=== PATIENT | male | born 1965 | race Caucasian/White ===

== ENCOUNTER 2020-08-02 08:04 | Outpatient (REF) | payer OTHER, SELFPAY ==
[2020-08-02 13:48] LABS: Vitamin B12 504 pg/mL (200-900)
== END 2020-08-02 08:05 | disposition home or self-care (01) ==
LOC: HO.MANLDS 08:04
PROVIDERS: PCP Physician Assistant; Visit Provider Physician Assistant
DX: E53.8 Deficiency of other specified B group vitamins (principal)
CPT/HCPCS: 82607

== ENCOUNTER 2021-04-27 09:20 | Outpatient (REF) | payer OTHER, SELFPAY ==
[2021-04-27 11:08] LABS: MANUAL DIFF FLAG NO
[2021-04-27 11:23] LABS: Basophils Percent Auto 0.7 % (0-2); Eosinophils Absolute Auto 0.1 X10*3/uL (0.0-0.4); Eosinophils Percent Auto 2.8 % (0-4); Hematocrit 43.3 % (42-52); Hemoglobin 15.1 g/dl (14.0-18.0); Imm Gran Abs Auto 0.01 X10*3/uL (0.00-0.03); Imm Gran Pct Auto 0.2 % (0.0-0.4); Lymphocytes Absolute Auto 1.2 X10*3/uL (1.2-4.9); Lymphocytes Percent Auto 28.4 % (20-40); Mean Corpuscular HGB Conc 34.9 g/dl (31.0-36.0); Mean Corpuscular Hemoglobin 34.5 pg (27.0-33.0); Mean Corpuscular Volume 98.9 fL (80-98); Mean Platelet Volume 9.5 fL (9.4-12.4); Monocytes Absolute Auto 0.3 X10*3/uL (0.1-1.2); Monocytes Percent Auto 8.1 % (2-11); Neutrophils Absolute Auto 2.5 X10*3/uL (2.0-8.3); Neutrophils Percent Auto 59.8 % (45-73); Platelet Count 195 X10*3/uL (160-400); Red Blood Count 4.38 X10*6/uL (4.60-5.80); Red Cell Distribution Width 12.1 % (11.0-16.0); White Blood Count 4.2 X10*3/uL (4.8-10.8)
[2021-04-27 11:33] LABS: Alanine Aminotransferase 15 U/L (0-40); Albumin Level 3.8 g/dL (3.5-5.0); Alkaline Phosphatase 83 U/L (39-117); Anion Gap 11 (12-20); Aspartate Amino Transferase 17 U/L (5-37); Bilirubin Total 1.5 mg/dL (0.0-1.0); Blood Urea Nitrogen 11 mg/dL (9-16); Calcium 9.2 mg/dL (8.4-10.2); Carbon Dioxide 25 mmol/L (22-29); Chloride 106 mmol/L (96-108); Cholesterol 229 mg/dL; Estimated Glomerular Filt Rate > 60; Glucose Fasting 91 mg/dL (60-99); HDL Cholesterol 56 mg/dL; LDL Cholesterol Calculated 155 mg/dl; Potassium 4.2 mmol/L (3.3-5.1); Sodium 138 mmol/L (135-145); Total Protein 6.8 g/dL (6.5-8.0); Triglycerides 91 mg/dL
== END 2021-04-27 09:21 | disposition home or self-care (01) ==
LOC: HO.MANLDS 09:20
PROVIDERS: PCP Internal Medicine; Visit Provider Physician Assistant
DX: Z00.00 Encounter for general adult medical examination without abnormal findings (principal)
CPT/HCPCS: 36415; 80053; 80061; 85025

== ENCOUNTER 2022-10-03 11:10 | Outpatient (REF) | payer OTHER, SELFPAY ==
[2022-10-03 13:58] LABS: MANUAL DIFF FLAG NO
[2022-10-03 14:11] LABS: Basophils Percent Auto 0.8 % (0-2); Eosinophils Absolute Auto 0.1 X10*3/uL (0.0-0.4); Hematocrit 41.9 % (42.0-52.0); Hemoglobin 14.5 g/dl (14.0-18.0); Imm Gran Abs Auto 0.01 X10*3/uL (0.00-0.03); Imm Gran Pct Auto 0.3 % (0.0-0.4); Lymphocytes Absolute Auto 1.3 X10*3/uL (1.2-4.9); Mean Corpuscular HGB Conc 34.6 g/dl (31.0-36.0); Mean Corpuscular Hemoglobin 34.9 pg (27.0-33.0); Mean Corpuscular Volume 100.7 fL (80.0-98.0); Mean Platelet Volume 9.5 fL (9.4-12.4); Monocytes Absolute Auto 0.3 X10*3/uL (0.1-1.2); Monocytes Percent Auto 9.2 % (2-11); Neutrophils Percent Auto 52.7 % (45-73); Platelet Count 171 X10*3/uL (160-400); Red Blood Count 4.16 X10*6/uL (4.60-5.80); Red Cell Distribution Width 12.5 % (11.0-16.0); White Blood Count 3.7 X10*3/uL (4.8-10.8)
[2022-10-03 14:37] LABS: Alanine Aminotransferase 26 U/L (0-40); Albumin Level 3.7 g/dL (3.5-5.0); Alkaline Phosphatase 79 U/L (39-117); Anion Gap 9 (12-20); Aspartate Amino Transferase 22 U/L (5-37); Bilirubin Total 1.2 mg/dL (0.0-1.0); Blood Urea Nitrogen 15 mg/dL (9-16); Calcium 8.8 mg/dL (8.4-10.2); Carbon Dioxide 27 mmol/L (22-29); Chloride 106 mmol/L (96-108); Cholesterol 219 mg/dL; Estimated Glomerular Filt Rate > 60; Glucose Random 86 mg/dL (60-115); HDL Cholesterol 55 mg/dL; LDL Cholesterol Calculated 147 mg/dl; Potassium 4.2 mmol/L (3.3-5.1); Prostate Specific Antigen 0.42 ng/mL (<0.05-4.0); Sodium 138 mmol/L (135-145); Total Protein 6.5 g/dL (6.5-8.0); Triglycerides 86 mg/dL
== END 2022-10-03 11:11 | disposition home or self-care (01) ==
LOC: HO.MANLDS 11:10
PROVIDERS: Visit Provider Physician Assistant
DX: Z00.00 Encounter for general adult medical examination without abnormal findings (principal); Z12.5 Encounter for screening for malignant neoplasm of prostate
CPT/HCPCS: 36415; 80053; 80061; 84153; 85025

== ENCOUNTER 2024-01-25 07:38 | Outpatient (REF) | payer OTHER, SELFPAY ==
[2024-01-25 13:34] LABS: MANUAL DIFF FLAG NO
[2024-01-25 13:47] LABS: Basophils Percent Auto 0.5 % (0-2); Eosinophils Absolute Auto 0.1 X10*3/uL (0.0-0.4); Eosinophils Percent Auto 3.1 % (0-4); Hematocrit 43.8 % (42.0-52.0); Hemoglobin 15.3 g/dl (14.0-18.0); Imm Gran Abs Auto 0.01 X10*3/uL (0.00-0.03); Imm Gran Pct Auto 0.2 % (0.0-0.4); Lymphocytes Absolute Auto 1.1 X10*3/uL (1.2-4.9); Lymphocytes Percent Auto 26.5 % (20-40); Mean Corpuscular HGB Conc 34.9 g/dl (31.0-36.0); Mean Corpuscular Hemoglobin 35.1 pg (27.0-33.0); Mean Corpuscular Volume 100.5 fL (80.0-98.0); Mean Platelet Volume 9.2 fL (9.4-12.4); Monocytes Absolute Auto 0.4 X10*3/uL (0.1-1.2); Monocytes Percent Auto 9.2 % (2-11); Neutrophils Absolute Auto 2.5 x10*3/uL (2.0-8.3); Neutrophils Percent Auto 60.5 % (45-73); Platelet Count 186 X10*3/uL (160-400); Red Blood Count 4.36 X10*6/uL (4.60-5.80); Red Cell Distribution Width 13.1 % (11.0-16.0); White Blood Count 4.2 X10*3/uL (4.8-10.8)
[2024-01-25 16:23] LABS: Alanine Aminotransferase 17 U/L (0-40); Albumin Level 3.8 g/dL (3.5-5.0); Alkaline Phosphatase 76 U/L (39-117); Anion Gap 11 (12-20); Aspartate Amino Transferase 19 U/L (5-37); Bilirubin Total 1.9 mg/dL (0.0-1.0); Blood Urea Nitrogen 9 mg/dL (9-16); Calcium 9.1 mg/dL (8.4-10.2); Carbon Dioxide 27 mmol/L (22-29); Chloride 107 mmol/L (96-108); Cholesterol 210 mg/dL (<200); Estimated Glomerular Filt Rate > 60; Glucose Random 80 mg/dL (60-115); HDL Cholesterol 44 mg/dL (>40); LDL Cholesterol Calculated 130 mg/dL (<100); Potassium 4.7 mmol/L (3.3-5.1); Sodium 140 mmol/L (135-145); Triglycerides 181 mg/dL (<150)
[2024-01-25 17:03] LABS: Prostate Specific Antigen 0.53 ng/mL (<0.05-4.0)
== END 2024-01-25 07:39 | disposition home or self-care (01) ==
LOC: HO.MANLDS 07:38
PROVIDERS: Visit Provider Physician Assistant
DX: Z00.00 Encounter for general adult medical examination without abnormal findings (principal); Z12.5 Encounter for screening for malignant neoplasm of prostate; Z13.6 Encounter for screening for cardiovascular disorders
CPT/HCPCS: 36415; 80053; 80061; 84153; 85025

== ENCOUNTER 2024-12-09 07:30 | Outpatient (REF) | payer OTHER, SELFPAY ==
--- OUTSIDE RECORDS SUMMARY | 2024-12-09 07:33 | XMS_ITS | Continuity of Care Document ---
Author Organization [facility], [facility] Address [address] [place] [address] [place] [address] Assessment No assessment recorded. Plan of Treatment Reminders Order Date Submit Date Provider Last Modified By Organization Details Last Modified Time Details Appointments ANNUAL EXAM 2025 03:30P YE MÁRQUEZ Not available Not available Not available Lab TSH + free T4, serum 2024 025 [facility], [address] [place] [address], [id number], 11/28/2024 16:00:35 CMP, serum or plasma 2024 025 [facility], [address] [place] [address], [id number], 11/28/2024 16:00:35 CBC w/ auto diff 2024 025 [facility], [address] [place] [address], [id number], 11/28/2024 16:00:35 PSA, serum or plasma 2024 025 [facility], [address] [place] [address], [id number], 11/28/2024 16:00:35 lipid panel, blood 2024 025 [facility], [address] [place] [address], [id number], 11/28/2024 16:00:35 hemoglobi n A1c, QN, blood 2024 025 [facility], [address] [place] [address], [place], [id number], 11/28/2024 16:00:35 Referral None recorded. Procedures None recorded. Surgeries None recorded. Imaging None recorded. Medication Orders None recorded. Patient TargetsNo targets recorded. Patient InstructionsNo instructions recorded. Reason for Referral None Reported. Problems Name Problem SNOMED Code Status Onset Date Resolution Date Notes Provider Name and Address Organization Details Recorded Time Mixed hyperlipid emia 312537629 Active 2017 Not Available [facility] 2 12:44:22 Acute low back pain 498920198 Active 2017 Not Available [facility] 2 12:44:22 Osteonecro sis of head of femur 273789158 Active 2018 Not Available [facility] 2 12:44:22 Low back pain 618772390 Active 2021 YE CASTILLO [address] [place] [address], [phone], [facility] 2 10:38:58 Rosacea, papular type 52676697 Active 2021 YE CASTILLO [address] [place] [address], [phone], [facility] 2 10:40:42 Atypical chest pain 386591619 Active 2023 YE CASTILLO [address] [place] [address], [phone], [facility] 4 15:44:34 Gastroesop hageal reflux disease 426096052 Active 2023 YE CASTILLO [address] [place] [address], [phone], [facility] 4 15:45:11 Dyspnea 014144328 Active 2023 YE CASTILLO [address] [place] [address], [phone], [facility] 4 15:45:23 COVID-19 474911240 Active 2023 YE CASTILLO [address] [place], [address], [facility] 4 15:27:52 Cobalamin deficiency 424590684 Active 2017 Not Available [facility] 2 12:44:22 Problem Notes None recorded. Procedures Surgical History Date Name Laterality Status Provider Name and Address Organization Details Recorded Time 04/28/20 19 Joint Replacement completed YE CASTILLO [address] [place], [address], [facility] 04/26/2020 09:08:48 Imaging Results None recorded. Procedure Notes None recorded. Medical Equipment None Reported. Allergies No known drug allergies Medications Name Sig Start Date Stop Date Status Note LastModified by Organization Details LastModified Time na 05/27 completed Not Available Not Available Not Available cyclobenzap rine 10 mg tablet Take 1 tablet 3 times a day by oral route for 5 days. 04/27 completed Not Available Not Available Not Available methocarbam ol 500 mg tablet 06/28 completed Not Available Not Available Not Available prednisone 10 mg tablet 5 tabs x 3 days 4 tabs x 3 days 3 tabs x 3 days 2 tabs x 3 days1 tabs x 3 days 04/27 completed Not Available Not Available Not Available gabapentin 600 mg tablet 04/14 completed Not Available Not Available Not Available azithromyci n 250 mg tablet TAKE 2 TABLETS (500 MG) BY ORAL ROUTE ONCE DAILY FOR 1 DAY THEN 1 TABLET (250 MG) BY ORAL ROUTE ONCE DAILY FOR 4 DAYS 10/03 completed Not Available Not Available Not Available ibuprofen 800 mg tablet TAKE 1 TABLET BY MOUTH EVERY 6 HOURS WITH FOOD 11/21 completed Not Available Not Available Not Available ofloxacin 0.3 % eye drops APPLY 1 DROP INTO LEFT EYE FOUR TIMES DAILY FOR 5 DAYS 10/03 completed Not Available Not Available Not Available hydrocodone 5 mg-acetamin ophen 325 mg tablet Take 1 tablet every 6 hours by oral route for 7 days. 04/26 completed Not Available Not Available Not Available meloxicam 15 mg tablet 04/14 completed Not Available Not Available Not Available ondansetron HCl 4 mg tablet 04/26 completed Not Available Not Available Not Available prednisone 20 mg tablet 3 tabs for 2 days2 tabs for 2 days1 tab for 2 days 11/21 completed Not Available Not Available Not Available sulfamethox azole 800 mg-trimetho prim 160 mg tablet TAKE 1 TABLET BY MOUTH TWICE DAILY FOR 7 DAYS 11/21 completed Not Available Not Available Not Available omeprazole 40 mg capsule,del ayed release TAKE 1 CAPSULE BY MOUTH DAILY 0.5 TO 1 HOUR BEFORE BREAKFAST active Not Available Not Available No t Available tramadol 50 mg tablet Take 1 tablet 4 times a day by oral route for 5 days. 04/27 completed Not Available Not Available Not Available triamcinolo ne acetonide 0.1 % topical cream APPLY TO THE AFFECTED AREA TWICE DAILY FOR 2 WEEKS THEN APPLY NEEDED AFTER THAT. 11/21 completed Not Available Not Available Not Available oxycodone-a cetaminophe n 5 mg-325 mg tablet TAKE 1 TABLET BY MOUTH EVERY 6 HOURS NEEDED 11/21 completed Not Available Not Available Not Available terbinafine HCl 250 mg tablet TAKE 1 TABLET BY MOUTH EVERY DAY 11/21 completed Not Available Not Available Not Available prednisolon e acetate 1 % eye drops,suspe nsion 05/27 completed Not Available Not Available Not Available methocarbam ol 750 mg tablet Take 1 tablet 3 times a day by oral route for 15 days. 06/28 completed Not Available Not Available Not Available clindamycin 1 % topical gel APPLY TOPICALLY TO ACNE ON CHEST AND BACK ONE A DAY NEEDED 10/03 completed Not Available Not Available Not Available IBU 600 mg tablet 02/25 completed Not Available Not Available Not Available Valium 5 mg tablet Take 1 tablet twice a day by oral route for 7 days. 02/25 completed Not Available Not Available Not Available benzonatate 100 mg capsule 10/03 completed Not Available Not Available Not Available cyanocobala min (vit B-12) 1,000 mcg/mL injection solution 05/27 completed Not Available Not Available Not Available prednisone 50 mg tablet 06/28 completed Not Available Not Available Not Available lidocaine 5 % topical patch 02/25 completed Not Available Not Available Not Available betamethaso ne dipropionat e 0.05 % topical cream APPLY TOPICALLY TO THE AFFECTED AREA TWICE DAILY FOR 2 WEEKS. LESS 11/21 completed Not Available Not Available Not Available gabapentin 300 mg capsule 02/25 completed Not Available Not Available Not Available diclofenac sodium 75 mg tablet,randolph yed release Take 1 tablet twice a day by oral route for 30 days. 04/26 completed Not Available Not Available Not Available montelukast 10 mg tablet 05/27 completed Not Available Not Available Not Available codeine 10 mg-guaifene sin 100 mg/5 mL oral liquid TAKE 5ML BY MOUTH THREE TIMES DAILY NEEDED FOR COUGH 10/03 completed Not Available Not Available Not Available mupirocin 2 % topical ointment 05/27 completed Not Available Not Available Not Available oxycodone-a cetaminophe n 7.5 mg-325 mg tablet TAKE 1 TABLET BY MOUTH EVERY 6 HOURS NEEDED FOR PAIN 05/09 completed Not Available Not Available Not Available levofloxaci n 750 mg tablet 05/27 completed Not Available Not Available Not Available methylpredn isolone 4 mg tablets in a dose pack 24 mg PO on day 1, then decr. by 4 mg/day x5 days per dose pack instructi ons 10/03 completed Not Available Not Available Not Available albuterol sulfate HFA 90 mcg/actuati on aerosol inhaler INHALE 2 PUFFS BY MOUTH INTO THE LUNGS EVERY 6 HOURS NEEDED FOR WHEEZING 10/03 completed Not Available Not Available Not Available hydroxyzine HCl 10 mg tablet TAKE 1 TO 2 TABLETS BY MOUTH DAILY EVERY 12 HOURS NEEDED FOR ITCHING 05/09 completed Not Available Not Available Not Available fluticasone propionate 50 mcg/actuati on nasal spray,suspe nsion SHAKE LIQUID AND USE 1 SPRAY IN EACH NOSTRIL EVERY DAY 10/03 completed Not Available Not Available Not Available metronidazo le 0.75 % topical gel APPLY TO FACE EVERY MORNING 11/21 completed Not Available Not Available Not Available amoxicillin 875 mg-potassiu m clavulanate 125 mg tablet TAKE 1 TABLET BY MOUTH TWICE DAILY WITH FOOD 10/03 completed Not Available Not Available Not Available nabumetone 500 mg tablet 1 tablet q 6 hours prn 06/28 completed Not Available Not Available Not Available amoxicillin 500 mg-mariely lopez clavulanate 125 mg tablet TAKE 1 TABLET BY MOUTH THREE TIMES A DAY UNTIL FINISHED 10/03 completed Not Available Not Available Not Available tobramycin 0.3 %-dexametha sone 0.1 % eye drops,suspe nsion SHAKE LIQUID AND INSTILL 1 DROP IN LEFT EYE TWICE DAILY 10/03 completed Not Available Not Available Not Available oxycodone 5 mg tablet 04/26 completed Not Available Not Available Not Available azelaic acid 15 % topical gel APPLY TO FACE EVERY NIGHT AT BEDTIME 11/21 completed Not Available Not Available Not Available chlorhexidi ne gluconate 0.12 % mouthwash 11/21 completed Not Available Not Available Not Available PreviDent 5000 Booster Plus 1.1 % dental paste BRUSH 2 TIMES A DAY FOR 2 MINUTES DIRECTED. DO NOT EAT OR DRINK FOR 30 MINUTES AFTER active Not Available Not Available No t Available Eucrisa 2 % topical ointment 05/09 completed Not Available Not Available Not Available Sodium Fluoride 5000 Plus 1.1 % dental cream USE DIRECTED 11/21 completed Not Available Not Available Not Available Paxlovid 300 mg (150 mg x 2)-100 mg tablets in a dose pack TK 2 NIRMATREL VIR TS AND 1 RITONAVIR T TOGETHER PO TWICE DAILY FOR 5 DAYS. 11/28 completed Not Available Not Available Not Available Vitals Date Recorded Body height Body mass index (BMI) Body weight Heart rate Oxygen saturation Oxygen saturation in Arterial blood by Pulse oximetry Systolic blood pressure Diastolic blood pressure Provider Name and Address Organization Details Last Updated DateTime 5 175.26 cm 30.6 kg/m2 63384.0 6 g 75 /min 95 % 95 % 112 mm[Hg] 72 mm[Hg] Eva Kamara MA [facility] 5 15:36:20 Social History Question Answer Notes LastModified by Organizat ion Details LastModified Time Tobacco Smoking Status Never Smoker EFREN Rodriguez [facility] 04/03/2018 09:02:20 What Was The Date Of Your Most Recent Tobacco Screening? 11/28/2024 [email or web address] Information not available 11/28/2024 Do You Or Have You Ever Used Any Other Forms Of Tobacco Or Nicotine? No [email or web address] Information not available 11/21/2023 Sex: Unknown Functional Status None recorded. Mental Status None recorded. Family History Nothing Reported. Medical History Condition Response Coronary Artery Disease N Other N Gout N Blood Diseases N Kidney Stones N Breast Cancer N Blood Transfusion N Lung Disease N Depression N COPD N Defects or Inherited Disease N Anxiety Disorder N Muscle, Joint, or Bone Problems Y Obesity N Vision or Eye Problems N Arthritis N Infertility N Polyps N Mental Disorder N Cancer N Stroke N Varicosities N Endometriosis N Bladder or Kidney Problems N High Cholesterol N Liver Disease N Fibromyalgia N Headaches N Kidney Disease N Allergies/Hayfever N Heart Problems N Hospitalizations N Thyroid Problems N GI Problems N Eating Disorder N Skin Problems N Anemia N MRSA exposure N Constipation N Mental Illness N Diabetes N Ovarian Cancer N Seizures/Epilepsy N Tuberculosis N Congestive Heart Failure (CHF) N Eczema N Abuse/Domestic Violence N Diverticulitis N Asthma N Reflux/GERD N Hepatitis N Heart Disease N Pulmonary Embolism N Hypertension N Chicken Pox N Autism Spectrum Disorder (ASD) N Osteoporosis N Immunizations Vaccine Type Date Status Note Provider Nam e and Address Organization Details Recorded Time COVID-19, mRNA, LNP-S, PF, 100 mcg/0.5mL dose or 50 mcg/0.25mL dose 1 completed Doretha Gencarelle [facility] 10/03/2022 09:59:12 COVID-19, mRNA, LNP-S, PF, 100 mcg/0.5mL dose or 50 mcg/0.25mL dose 1 completed Doretha Gencarelle [facility] 10/03/2022 09:59:12 zoster, unspecified formulation 2 completed Doretha Gencarelle [facility] 10/03/2022 09:59:12 Influenza, split virus, quadrivalent, preservative 8 completed Dorehta Gencarelle [facility] 10/03/2022 09:59:12 [facility] 04/26/2020 08:55:10 Influenza, split virus, quadrivalent, preservative 9 completed Doretha lisagerianjana nasreen [facility] 10/03/2022 09:59:12 Past Encounters Encounter ID Performer Location Encounter Start Date Encounter Closed Date Diagnosis/Indication Diagnosis SNOMED-CT Code Diagnosis ICD10 Code Diagnosis Note [id number] YE CASTILLO [facility] [address] [facility] [address] 11/28/2024 15:27:17 11/28/2024 16:13:26 Active or passive immunization 476169144 Z23 patient advised he is due for tdap and yearly influenza vaccine Adult heal th examination 890359158 Z00.00 stable BP Family his tory of Thyroid disorder 185298718 Z83.49 will set up with screening Health Concerns Section Related Observation LastModified by Organization Detai ls LastModified Time None Recorded Concern Status LastModified by Organization Details LastModified Time None Recorded Payers Encounter Date Sequence Insurance Name Policy Number Policy Pham Covered Member ID Pham Member ID Guarantor Name 11/28/2024 1 [facility] [id number] [facility] [id number] [facility] Notes Date Note Type Note Provider Name a nd Address Organization Details Recorded Time 5 text/html Annual WellnessReported bypatient.Diet and Nutrition:healthy diet; discussed vitamin and supplement use; discussed portion control; discussed maintaining calcium balance; discussed diet improvement Fracture Risk:no history of fractures; no recent explained fracture; no sudden unexplained fractures; no previous musculoskeletal injuries Physical Activity:exercises on a regular basis; recent increase in physical activity; good physical condition Additional Lifestyle Factors:no tobacco use; no alcohol intake; stopped drinking alcohol Depression Risk:never feels sad, empty, or tearful; no loss of interest in activities; no significant changes in weight; no sleep disturbances or insomnia; no agitation; no loss of energy; no feelings of worthlessness or guilt; no thoughts of suicide; no history of depression; no history of mood disorders Hearing:no loss of hearing Vision:no vision problems YE CASTILLO [address] [place], [address], [facility] 11/28/2024 16:08:05
--- OUTSIDE RECORDS SUMMARY | 2024-12-09 07:33 | XMS_ITS | Clinical Summary ---
Author Organization [facility] Address [address] [place] [address] Care Team Providers Care Brass Cutter Name Role Phone Pcp, No Primary Care Provider Unavailabl e Allergies No known active allergies Social History Tobacco Use Types Packs/Day Years Used Date Smoking Tobacco: Never Assessed Sex and Gender Information Value Date Recorded Sex Assigned at Not on file Gender Identity Not on file Sexual Orientation Not on file Last Filed Vital Signs Vital Sign Reading Time Taken Comments Blood Pressure - - Pulse 65 06/21/2021 10:24 AM EDT Temperature 36.6 ??C (97.8 ??F) 06/21/2021 10:24 AM E DT Respiratory Rate - - Oxygen Saturation 98% 06/21/2021 10:24 AM EDT Inhaled Oxygen Concentration - - Weight - - Height - - Body Mass Index - - Plan of Treatment Health Maintenance Due Date Last Done Comments Hepatitis C Virus Screening 1966 HIV Screening 1979 DTaP/Tdap/Td Vaccines (1 - Tdap) 1985 Hepatitis B Vaccines (1 of 3 - 19+ 3-dose series) 1985 Colonoscopy 2011 Pneumococcal Vaccines 50+ (1 of 1 - PCV) 2016 Zoster (Shingles) Vaccine (1 of 2) 2016 Influenza Vaccine 05/08/2024 07/13/2020 COVID-19 Vaccine (2023-2 5 season) 2024 09/08/2021, 01/31/2021, 12/27/2020 Pneumococcal Vaccine: Pediatric (0-5 Years) and At-Risk Patients (6 to 49 Years) Aged Out No longer eligible b ased on patient's age to complete this topic Care Teams Brass Cutter Relationship Specialty Start Date End Date Pcp, No PCP - General General Medicine 05/26/21
--- OUTSIDE RECORDS SUMMARY | 2024-12-09 07:33 | XMS_ITS | Clinical Summary ---
Author Organization [facility] Address [address] [place] [address] Care Team Providers Care Candy Butcher Name Role Phone Ander Rojas DO Primary Care Provider [phone] Social History Tobacco Use Types Packs/Day Years Used Date Smoking Tobacco: Never Assessed Sex and Gender Information Value Date Recorded Sex Assigned at Male 04/28/2020 10:17 AM EDT Gender Identity Not on file Sexual Orientation Not on file Plan of Treatment Health Maintenance Due Date Last Done Comments Hepatitis B Vaccines (1 of 3 - 3-dose series) 1966 Hepatitis C Screening 1966 COVID-19 Vaccine (#1) 1966 Depression Screening 1978 Preventative Health Evaluation 1984 DTap / Tdap / Td (1 - Tdap) 1985 Colon Cancer Screening (Colonoscopy) 2011 Shingrix-Zoster Vaccine (1 of 2) 2016 Influenza Vaccine (#1) 2024 Pneumococcal Vaccine Aged Out No long er eligible based on patient's age to complete this topic RSV Ped < 20 months Aged Out No longe r eligible based on patient's age to complete this topic Care Teams Candy Butcher Relationship Specialty Start Date End Date Ander Rojas DO [address] [place] [address] PCP - General Internal Medicine 04/28/20
--- OUTSIDE RECORDS SUMMARY | 2024-12-09 07:33 | XMS_ITS | Data Portability ---
Author Organization [facility] Home Service Address [address] [place] [address] Assessment Encounter Date Assessment Date Assessment LastModified by Organization Details LastModified Time 10/12/2021 10/12/2021 Patient agreed and verbally consents to this audio and video Telehealth appt via a secure platform [email or web address] Not available 10/12/2021 15:01:34 05/09/2024 05/09/2024 Patient agreed and verbally consents to this audio and video Telehealth appt via a secure platform [email or web address] Not available 05/09/2024 15:44:46 Plan of Treatment Reminders Order Date Submit Date Provider Last Modified By Organization Details Last Modified Time Details Appointments ANNUAL EXAM 2025 03:30P M YE CASTILLO Not available Not available Not available Lab TSH + free T4, serum 2024 025 [facility], [address] [place] [address], [id number], 11/28/2024 16:00:35 CMP, serum or plasma 2024 025 [facility], [address] [place] [address], [id number], 11/28/2024 16:00:35 CBC w/ auto diff 2024 025 [facility], [address] [place] [address], [id number], 11/28/2024 16:00:35 PSA, serum or plasma 2024 025 [facility], [address] [place] [address], [id number], 11/28/2024 16:00:35 lipid panel, blood 2024 025 [facility], [address] [place] [address], [id number], 11/28/2024 16:00:35 hemoglobi n A1c, QN, blood 2024 025 [facility], [address] [place] [address], [id number], 11/28/2024 16:00:35 CMP, serum or plasma 2023 024 [facility], [address] [place] [address], [id number], 01/28/2024 11:36:51 CBC w/ auto diff 2023 024 [facility], [address] [place] [address], [id number], 11/21/2023 16:19:50 lipid panel, blood 2023 024 [facility], [address] [place] [address], [id number], 11/21/2023 16:19:50 PSA, serum or plasma 2023 024 [facility], [address] [place] [address], [id number], 11/28/2023 08:23:13 CMP, serum or plasma 2021 022 [facility], [address] [place] [address], [id number], 10/10/2022 10:44:11 lipid panel, blood 2021 022 [facility], [address] [place] [address], [place], [address], 10/03/2022 10:50:28 CBC w/ auto diff 2021 [facility], [address] [place] [address], [id number], 10/10/2022 09:54:37 PSA, serum or plasma 2021 [facility], [address] [place] [address], [place], [id number], 10/10/2022 10:44:12 Referral gastroent erologist referral 2023 prelav43 [facility], [address] [place] [address], [id number], 05/12/2024 11:20:45 Procedures None recorded. Surgeries None recorded. Imaging None recorded. Medication Orders prednison e 20 mg tablet 2021 [id number], [address] [place], [place], [id number], 11/21/2023 16:13:41 metronida zole 0.75 % topical gel 2021 [facility] #[id number], [address], [place], [id number], 11/21/2023 16:13:55 Patient TargetsNo targets recorded. Patient InstructionsNo instructions recorded. Reason for Referral [employer] Referral for Gastroesophageal reflux disease GERD, ?gastritis, gastric ulcer Referring Physician: Ariana Khan, Internal Medicine, Encounter Date: 05/09/2024 Results Created Date Observation Date Name Description Value Unit Range Abnormal Flag Note LastModifiedBy Organization Detail LastModifiedTime Result Notes None recorded. Problems Name Problem SNOMED Code Status Onset Date Resolution Date Notes Provider Name and Address Organization Details Recorded Time Mixed hyperlipid emia 319094179 Active 2017 Not Available [facility] 2 12:44:22 Acute low back pain 301009206 Active 2017 Not Available [facility] 2 12:44:22 Osteonecro sis of head of femur 284228114 Active 2018 Not Available [facility] 2 12:44:22 Low back pain 905275652 Active 2021 EY CASTILLO [address] [place], [address], [facility] 2 10:38:58 Rosacea, papular type 32688253 Active 2021 YE CASTILLO [address] [place], [address], [facility] 2 10:40:42 Atypical chest pain 529666466 Active 2023 YE CASTILLO [address] [place], [address], [facility] 4 15:44:34 Gastroesop hageal reflux disease 463002506 Active 2023 YE CASTILLO [address] [place], [address], [facility] 4 15:45:11 Dyspnea 986829594 Active 2023 YE CASTILLO [address] [place], [address], [facility] 4 15:45:23 COVID-19 871592560 Active 2023 YE CASTILLO [address] [place], [address], [facility] 4 15:27:52 Cobalamin deficiency 343851345 Active 2017 Not Available [facility] 2 12:44:22 Problem Notes None recorded. Procedures Surgical History Date Name Laterality Status Provider Name and Address Organization Details Recorded Time 04/28/20 19 Joint Replacement completed YE CASTILLO [address] [place], [address], [facility] 04/26/2020 09:08:48 Imaging Results None [...] Available Not Available Not Available amoxicillin 500 mg-potassiu m clavulanate 125 mg tablet TAKE [...] and Address Organization Details Last Updated DateTime 2 175.26 cm 31.5 kg/m2 91410.3 3 g 61 /min 98 % 98 % 134 mm[Hg] 82 mm[Hg] Juana King [facility] 2 10:10:18 Date Recorded Body height Body mass index (BMI) Body weight Oxygen saturation Oxygen saturation in Arterial blood by Pulse oximetry Heart rate Systolic blood pressure Diastolic blood pressure Provider Name and Address Organization Details Last Updated DateTime 4 175.26 cm 31.5 kg/m2 03677.1 7 g 95 % 95 % 79 /min 98 mm[Hg] 58 mm[Hg] Heather Duenas [facility] 4 15:59:32 Date Recorded Body height Body mass index (BMI) Body weight Heart rate Oxygen saturation Oxygen saturation in Arterial blood by Pulse oximetry Systolic blood pressure Diastolic blood pressure Provider Name and Address Organization Details Last Updated DateTime 5 175.26 cm 30.6 kg/m2 27677.0 6 g 75 /min 95 % 95 % 112 mm[Hg] 72 mm[Hg] Eva Kamara [facility] 5 15:36:20 Social History Question Answer Notes LastModified by Organizat ion Details LastModified Time Tobacco Smoking Status [facility] 09:02:20 What Was The Date Of Your Most Recent Tobacco Screening? 11/28/2024 [email or web address] Information not available 11/28/2024 Do You Or Have You Ever Used Any Other Forms Of Tobacco Or Nicotine? No [email or web address] Information not available 11/21/2023 Sex: Unknown Functional Status None recorded. Mental Status None recorded. Family History Nothing Reported. Medical History Condition Response Coronary Artery Disease N Gout N Other N Kidney Stones N Blood Diseases N Blood Transfusion N Breast Cancer N COPD N Depression N Lung Disease N Defects or Inherited Disease N Anxiety Disorder N Muscle, Joint, or Bone Problems Y Obesity N Vision or Eye Problems N Arthritis N Polyps N Infertility N Mental Disorder N Cancer N Varicosities N Stroke N Endometriosis N Bladder or Kidney Problems N High Cholesterol N Liver Disease N Headaches N Fibromyalgia N Kidney Disease N Allergies/Hayfever N Heart [...] 50 mcg/0.25mL dose 1 completed Doretha Gencarelle [facility] 10/03/2022 09:59:12 COVID-19, mRNA, LNP-S, PF, 100 mcg/0.5mL dose or 50 mcg/0.25mL dose 1 completed Doretha Gencarelle [facility] 10/03/2022 09:59:12 zoster, unspecified formulation 2 completed Doretha Gencarelle [facility] 10/03/2022 09:59:12 Influenza, split virus, quadrivalent, preservative 8 completed Doretha Gencarelle [facility] 10/03/2022 09:59:12 Tdap 2 completed [facility] 04/26/2020 08:55:10 Influenza, split virus, quadrivalent, preservative 9 completed Doretha Cruz nasreen [facility] 10/03/2022 09:59:12 Past Encounters Encounter ID Performer Location Encounter Start Date Encounter Closed Date Diagnosis/Indication Diagnosis SNOMED-CT Code Diagnosis ICD10 Code Diagnosis Note [id number] [facility] [address] [place] [address],[place] [address] 04/03/2018 08:54:05 04/03/2018 09:48:06 Adult health examination 259993023 Z00.00 [id number] [facility] [address],[place] [address] 05/27/2018 13:30:37 05/27/2018 14:40:54 Acute low back pain 080400224 M54.5 likely muscular recommend conservati ve treatment and consider PT if not relieved Leukopenia 69505996 D72. 819 has had in past and was found to have borderline b12. he took injections for 6 months then rechecked and it was normal. because he never heard back he assumed he could stop the b12 injections . he's been off since 12/2017. may be why he was mildly anemic Vitamin B1 2 deficiency (non anemic) 08315290 E53.8 has been off injections since 12/2017 [id number] [facility] [address] [place] [address],[place] [address] 2018 13:57:20 2018 14:42:33 Chronic back pain 867112654 G89.29 chronic intermitte nt bowel regimen Pain in ri ght hip joint 9891512169 62187 M25.551 chronic worsening Pain in right knee 76165 05053 95985 M25.561 now bothersome again no injury [facility] [address] [place] [address] [address],[place] [address] 02/25/2019 15:27:21 02/25/2019 16:13:20 Osteonecrosis of hip 409743430 M87.851 plan is to f/u with ortho 03/04/19 for going forward stop meloxicam will rx vicodin until seen by ortho Mixed hyperlipidemia 267 674055 E78.2 [id number] January DAVID Hopper [facility] [address] [facility] [address], [place] [facility] [place] [address] 04/14/2019 09:21:03 04/14/2019 10:05:52 Pre-surgery evaluation 802810822 Z01.818 cleared for surgery pending ekg reading labs reviewed awaiting ekg Adult heal th examination 526774826 Z00.00 Active or passive immunization 533284535 Z23 Body mass index 30+ - obesity 771513077 Z68.31 Macrocytosis 561527207 D 75.89 recommend taking b12 year round as he tends to run low end of normal Osteonecrosis of hip 444 865248 M87.851 THR scheduled for 04/28 with amarilys sandoval [id number] YE CASTILLO [facility] [address] [facility], [place] [address] 04/26/2020 08:52:13 04/26/2020 09:27:24 Adult health examination 125953385 Z00.00 just would like to see a specialist for hearing exam Hearing loss 10352744 H9 1.93 tinnitus and hearing loss bilateral [id number] YE CASTILLO [facility] [address] [facility], [place] [address] 07/12/2020 10:36:36 07/12/2020 16:34:41 Lumbago with sciatica 559266693 M54.41 will try and treat first with pred taper if doesn't work with try tramadol and cyclo, which worked before [id number] YE CASTILLO [facility] [address] [facility] [address] [address] 04/27/2021 08:57:30 04/27/2021 09:54:49 Active or passive immunization 828218861 Z23 advised Adult heal th examination 956628523 Z00.00 just would like to see a specialist for hearing exam Posterior rhinorrhea 758 82397 R09.82 will start on flonase [id number] YE CASTILLO [facility] [address] [facility] [address] [address] 10/12/2021 09:24:25 10/12/2021 15:55:18 Exposure to SARS-CoV-2 887176609 Z20.[address] [facility] [id number] YE CASTILLO [facility] [address] [facility] [address], [place] [address] 10/03/2022 09:58:30 10/03/2022 10:53:45 Active or passive immunization 282349631 Z23 patient advised he is due for tdap Adult heal th examination 762293391 Z00.00 just would like to see a specialist for hearing exam Low back pain 580867236 M54.59 will start taper for patient Rosacea, papular type 75 712952 L71.8 will trial metro [id number] YE CASTILLO [facility] [address] [facility] [address] 11/21/2023 15:47:52 11/21/2023 16:34:55 Adult health examination 985567314 Z00.00 stable BP [id number] YE CASTILLO [facility] [address] [facility], [place] [address] 05/09/2024 09:15:41 05/12/2024 11:20:45 Atypical chest pain 676653111 R07.89 resolved Gastroesop hageal reflux disease 876268871 K21.00 agreed to GI referral for endoscope Dyspnea 410161442 R06.02 resolved Depression screening 171 438341 Z13.31 neg Active or passive immunization 065123807 Z23 patient advised he is due for tdap and yearly influenza vaccine [id number] YE CASTILLO [facility] [address] [facility] [address],[place] [address] 11/28/2024 15:27:17 11/28/2024 16:13:26 Active or passive immunization 501335669 Z23 patient advised he is due for tdap and yearly influenza vaccine Adult heal th examination 008246298 Z00.00 stable BP Family his tory of Thyroid disorder 524115510 Z83.49 will set up with screening Health Concerns Section Related Observation LastModified by Organization Detai ls LastModified Time None Recorded Concern Status LastModified by Organization Details LastModified Time None Recorded Advance Directives Directive None Recorded Payers Encounter Date Sequence Insurance Name Policy Number Policy Pham Covered Member ID Pham Member ID Guarantor Name 10/12/2021 1 [employer] [id number] Huey Helems [id number] 1 Huey Helems 10/03/2022 1 [employer] [id number] Huey Helems [id number] 1 Huey Helems 11/21/2023 1 [employer] [id number] Huey Helems [id number] 1 Huey Helems 05/09/2024 1 [employer] [id number] Huey Helems [id number] 1 Huey Helems 11/28/2024 1 [employer] [id number] Huey Helems [id number] 1 Huey Helems Notes Date Note Type Note Provider Name a nd Address Organization Details Recorded Time 2 text/html c/o COVID exposure telemed phone callpatient consents to a phone call patient went to [facility], where the next few days after a few of his friends tested positive for COVIDwill need a negative test result for workwill send order to [facility] per patient request no symptoms at this timewill fax order for patient YE CASTILLO [address] [place] [address], [address], [facility] 10/12/2021 15:01:50 2 text/html Annual WellnessReported bypatient.Diet and Nutrition:discussed vitamin and supplement use; discussed portion control; discussed maintaining calcium balance; discussed diet improvement Fracture Risk:no history of fractures; no recent explained fracture; no sudden unexplained fractures; no previous musculoskeletal injuries Physical Activity:exercises on a regular basis; recent increase in physical activity; good physical condition Additional Lifestyle Factors:no tobacco use; drinks alcohol (mild-moderate) Depression Risk:never feels sad, empty, or tearful; no loss of interest in activities; no significant changes in weight; no sleep disturbances or insomnia; no agitation; no loss of energy; no feelings of worthlessness or guilt; no thoughts of suicide; no history of depression; no history of mood disorders Hearing:no loss of hearing Vision:no vision problems YE CASTILLO [address] [place], [address], [facility] 10/03/2022 10:49:54 4 text/html Annual WellnessReported bypatient.Diet and Nutrition:healthy diet; discussed vitamin and supplement use; discussed portion control; discussed maintaining calcium balance; discussed diet improvement Fracture Risk:no history of fractures; no recent explained fracture; no sudden unexplained fractures; no previous musculoskeletal injuries Physical Activity:exercises on a regular basis; recent increase in physical activity; good physical condition Additional Lifestyle Factors:no tobacco use; stopped drinking alcohol Depression Risk:never feels sad, empty, or tearful; no loss of interest in activities; no significant changes in weight; no sleep disturbances or insomnia; no agitation; no loss of energy; no feelings of worthlessness or guilt; no thoughts of suicide; no history of depression; no history of mood disorders Hearing:no loss of hearing Vision:no vision problems YE CASTILLO [address] [place], [address] 11/21/2023 16:22:27 4 text/html ER f/u The patient is participating in this appointment via telemedicine communication with a phone call/video calling service ([employer])The patient consents to use of these platforms in place of an in-person appointment due to either sick symptoms the patient is presenting with or current office closure due to COVID exposure in order to keep our office staff and patients safe the patient presented to the ER with 2 days of ongoing intermittent chest pain and sob, woke up the day of the ER visit with 5/10 retrosternal chest pain and difficulties breathing patient has no serious cardiac history or significant medical historythe patient's EKG was normal, vitals were within normal limitstroponin wnl with no elevation with secondary values no signs of infection, no recent medications, does not have cancer/currently going through chemo/radiationno hx of trauma or injury to the chest leading up to these symptoms the patient did endorse after further conversation to eating several greasy take out meals prior to the development of symptoms the day prior as his exam and bw was assuring patient was d/c home with a script of omeprazole, final diagnosis on d/c was GERD omeprazole 40 mg QD PO, first thing in the morning prior to meals recommended f/u with PCP Today: the patient states he is feeling fine todaysome tightness around his chestno burning in throatcannot exclude gastritis vs gastric ulcer vs hiatal herniaagreed to GI referral for further work up has been using his omeprazole, will see custom stock maker Sunday as wellworking on diet YE CASTILLO [address] [place] [address], [address], [facility] 05/09/2024 16:20:06 text/html Annual WellnessReported bypatient.Diet and Nutrition:healthy diet; [...] hearing Vision:no vision problems YE CASTILLO [address] [place], [address], [facility] 11/28/2024 16:08:05
--- OUTSIDE RECORDS SUMMARY | 2024-12-09 07:33 | XMS_ITS | Clinical Summary ---
Author Organization [facility] ity Address [address] [place] [address] Care Team Providers Care Clinical Research Manager Name Role Phone Ander Rojas DO Primary Care Provider [phone] Social History Tobacco Use Types Packs/Day Years Used Date Smoking Tobacco: Never Assessed Sex and Gender Information Value Date Recorded Sex Assigned at Not on file Legal Sex Male 7:26 PM EST Gender Identity Not on file Sexual Orientation Not on file Plan of Treatment Health Maintenance Due Date Last Done Comments DTaP,Tdap,and Td Vaccines (1 - Tdap) 1985 Hepatitis B Vaccines (1 of 3 - 19+ 3-dose series) 1985 Pneumococcal Vaccine: 50+ Ye ars (1 of 1 - PCV) 2016 Zoster Vaccines (1 of 2) 2016 COVID-19 Vaccine (2023-2 5 season) 2024 Influenza Vaccine (#1) 2024 HIB Vaccines Aged Out No longer eligi ble based on patient's age to complete this topic HPV Vaccines Aged Out No longer eligi ble based on patient's age to complete this topic Hepatitis A Vaccines Aged Out No long er eligible based on patient's age to complete this topic IPV Vaccines Aged Out No longer eligi ble based on patient's age to complete this topic MMR Vaccines Aged Out No longer eligi ble based on patient's age to complete this topic Meningococcal ACWY Vaccine Aged Out N o longer eligible based on patient's age to complete this topic Meningococcal B Vacine Aged Out No lo nger eligible based on patient's age to complete this topic Pneumococcal Vaccine: Pediat rics (0 to 5 Years) and At-Risk Patients (6 to 64 Years) Aged Out No longer eligible b ased on patient's age to complete this topic RSV Immunization Patients Un fazal 20 months Aged Out No longer eligible b ased on patient's age to complete this topic Varicella Vaccines Aged Out No longer eligible based on patient's age to complete this topic Care Teams Clinical Research Manager Relationship Specialty Start Date End Date Ander Rojas DO [address] [facility] [address] [place], [place] PCP - General Internal Medicine 04/28/20
[2024-12-09 13:41] LABS: MANUAL DIFF FLAG NO
[2024-12-09 13:52] LABS: Basophils Percent Auto 0.7 % (0-2); Eosinophils Absolute Auto 0.1 X10*3/uL (0.0-0.4); Eosinophils Percent Auto 2.7 % (0-4); Hematocrit 42.1 % (42.0-52.0); Hemoglobin 14.5 g/dl (14.0-18.0); Imm Gran Abs Auto 0.02 X10*3/uL (0.00-0.03); Imm Gran Pct Auto 0.5 % (0.0-0.4); Lymphocytes Absolute Auto 1.5 X10*3/uL (1.2-4.9); Lymphocytes Percent Auto 33.5 % (20-40); Mean Corpuscular HGB Conc 34.4 g/dl (31.0-36.0); Mean Corpuscular Volume 98.8 fL (80.0-98.0); Mean Platelet Volume 9.3 fL (9.4-12.4); Monocytes Absolute Auto 0.4 X10*3/uL (0.1-1.2); Neutrophils Absolute Auto 2.4 x10*3/uL (2.0-8.3); Neutrophils Percent Auto 53.6 % (45-73); Platelet Count 186 X10*3/uL (160-400); Red Blood Count 4.26 X10*6/uL (4.60-5.80); Red Cell Distribution Width 13.3 % (11.0-16.0); White Blood Count 4.4 X10*3/uL (4.8-10.8)
[2024-12-09 14:41] LABS: Alanine Aminotransferase 20 U/L (0-40); Albumin Level 3.6 g/dL (3.5-5.0); Alkaline Phosphatase 83 U/L (39-117); Anion Gap 12 (12-20); Aspartate Amino Transferase 23 U/L (5-37); Bilirubin Total 1.2 mg/dL (0.0-1.0); Blood Urea Nitrogen 11 mg/dL (9-16); Calcium 8.7 mg/dL (8.4-10.2); Carbon Dioxide 25 mmol/L (22-29); Chloride 108 mmol/L (96-108); Cholesterol 193 mg/dL (<200); Estimated Glomerular Filt Rate > 60; Glucose Random 94 mg/dL (60-115); HDL Cholesterol 44 mg/dL (>40); LDL Cholesterol Calculated 125 mg/dL (<100); Potassium 4.9 mmol/L (3.3-5.1); Sodium 140 mmol/L (135-145); Total Protein 7.1 g/dL (6.5-8.0); Triglycerides 123 mg/dL (<150)
[2024-12-09 14:53] LABS: Prostate Specific Antigen 0.47 ng/mL (<0.05-4.0); Thyroid Stimulating Hormone 1.25 uIU/mL (0.32-4.0)
[2024-12-09 15:13] LABS: T4 Thyroxine 7.1 ug/dL (4.5-12.0)
[2024-12-09 16:22] LABS: Estimated Average Glucose 100 mg/dL; Hemoglobin A1C 121.1102 umol/L; Hemoglobin A1c % 5.1 % (<6.0); Total Hemoglobin (HGBA1C) 3738.9867 umol/L
== END 2024-12-09 07:31 | disposition home or self-care (01) ==
LOC: HO.MANLDS 07:30
PROVIDERS: Visit Provider Physician Assistant
DX: Z83.49 Family history of other endocrine, nutritional and metabolic diseases (principal); Z13.220 Encounter for screening for lipoid disorders; Z13.1 Encounter for screening for diabetes mellitus; Z13.29 Encounter for screening for other suspected endocrine disorder; Z13.0 Encounter for screening for diseases of the blood and blood-forming organs and certain disorders involving the immune mechanism; Z12.5 Encounter for screening for malignant neoplasm of prostate
CPT/HCPCS: 36415; 80053; 80061; 83036; 84153; 84436; 84443; 85025

== ENCOUNTER 2025-08-07 15:26 | Outpatient (REF) | payer OTHER, SELFPAY ==
--- OUTSIDE RECORDS SUMMARY | 2025-08-05 09:30 | XMS_ITS | Encounter Summary ---
Author Organization [facility] Address [address] [place] [address] Phone Care Team Providers Care Event Management Consultant Name Role Phone Ander Rojas DO Primary Care Provider [phone] Reason for Visit * Reason Comments Back Pain Lifted a file cabine t and throw in truck. Mid to lower Encounter Details Date Type Department Care Team (Late st Contact Info) Description 08/05/2025 9:30 AM EDT Office Visit [facility] [address] [address] Evangelina Pineda CNP [address] [place] [address] juan [email or web address] Acute midline low back pain without sciatica (Primary Dx); Nontraumatic compression fracture of T8 vertebra, initial encounter Social History Tobacco Use Types Packs/Day Years Used Date Smoking Tobacco: Never Smokeless Tobacco: Never Tobacco Cessation:Counseling Given: Not Answered Alcohol Use Standard Drinks/Week Comments No 0 (1 standard drink = 0.6 oz pur e alcohol) Education Answer Date Recorded Are you interested in more education? Not on carli e 02/02/2023 Are you concerned about learning? Not on file 02/02/2023 No 02/02/2023 No 02/02/2023 Digital Access Answer Date Recorded No 03/03/2023 No 03/03/2023 Reliable internet access at home? Not on file 03/03/2023 Device with a working camera? Not on file Intimate Partner Violence Answer Date R ecorded Are you denied basic needs s uch as food, clothing, or medical care? No 08/07/2024 In the past 12 months have y ou been in a relationship with a person who hurts, threatens, or tries to control you? No 08/07/2024 Are you denied basic needs s uch as food, clothing, or medical care? No 08/07/2024 In the past 12 months have y ou been in a relationship with a person who hurts, threatens, or tries to control you? No 08/07/2024 Sex and Gender Information Value Date Recorded Sex Assigned at Not on file Legal Sex Male 9:40 PM EDT Gender Identity Not on file Sexual Orientation Not on file documented as of this encounter Last Filed Vital Signs Vital Sign Reading Time Taken Comments Blood Pressure 116/77 08/05/2025 9:35 AM EDT Pulse 75 08/05/2025 9:35 AM EDT Temperature 36.9 C (98.4 F) 08/05/2025 9:35 AM EDT Respiratory Rate 18 08/05/2025 9:35 AM EDT Oxygen Saturation 98% 08/05/2025 9:35 AM EDT Inhaled Oxygen Concentration - - Weight - - Height - - Body Mass Index - - documented in this encounter Patient Instructions * Patient Instructions* Evangelina Pineda CNP - 08/05/2025 9:30 AM EDT There is noted compression fracture at proximately T8 and T12 You need to rest and stay in position of comfort although do not stay in 1 position for extended period of time If you develop abdominal pain or blood in urine stool or any numbness or tingling in the extremities seek follow-up care You will need to follow-up at [facility] You can call to schedule an appointment either in [place] or [place] Phone numbers are [phone] and [place] Or [phone] in [place] We have prescribed tramadol which is a narcotic pain medication and you may also take [id number] acetaminophen Make sure you stay hydrated * Attachments The following attachments cannot be sent through Care Everywhere. * Back Pain (Guatem[place]) * Compression Fracture: Spine ([place]) documented in this encounter Progress Notes * Evangelina Pineda CNP - 08/05/2025 9:30 AM EDT Images from the original note were not included. Subjective: Patient ID: Huey Acevedo is a 60 y.o. male. 60-year-old male patient presents 30 minutes status post acute onset of back pain and hearing pop in the mid low back. Was trying to lift a file cabinet standing sideways to truck and as he tried to swing it onto the truck felt and heard pain which did drop him to his knees. After several minutes patient was able to get up on his own. There was no loss of bowel or bladder. Currently no abdominal pain or nauseousness or vomiting. Since injury patient has not had to void or move bowels. able to ambulate slowly and with great discomfort. Review of Systems Constitutional: Negative for appetite change, chills, diaphoresis, fatigue and fever. Respiratory: Negative for cough and shortness of breath. Gastrointestinal: Negative for abdominal pain, nausea and vomiting. Allergic/Immunologic: Negative for immunocompromised state. Skin: Negative for persistent rash and wound. Musculoskeletal: Positive for back pain and gait problem. Negative for joint swelling and myalgias. Vitals: 08/05/25 0935 BP: 116/77 Pulse: 75 Resp: 18 Temp: 36.9 ??C (98.4 ??F) SpO2: 98% Objective: Physical Exam Vitals and nursing note reviewed. Constitutional: General: He is not in acute distress. Appearance: Normal appearance. He is not ill-appearing, toxic-appearing or diaphoretic. Comments: Patient in obvious discomfort Returning to room from x-ray patient felt lightheaded, color drained from face- immediately sat in chair without fall syncope Ice applied to neck HENT: Head: Normocephalic and atraumatic. Cardiovascular: Rate and Rhythm: Normal rate and regular rhythm. Pulmonary: Effort: Pulmonary effort is normal. Abdominal: General: There is no distension. Palpations: Abdomen is soft. There is no mass. Tenderness: There is no abdominal tenderness. There is no guarding or rebound. Hernia: No hernia is present. Musculoskeletal: Comments: Back is nontender along spinal processes Skin: General: Skin is warm and dry. Findings: No bruising, erythema or rash. Neurological: General: No focal deficit present. Mental Status: He is alert and oriented to person, place, and time. Motor: Weakness present. Gait: Gait abnormal (antalgic, hunched). Comments: Patient unable to sit and we are unable to assess DTRs No peripheral edema, calves are soft Patient is able to stand on heels and toes and each foot independently Psychiatric: Mood and Affect: Mood normal. Behavior: Behavior normal. No results found for this visit on 08/05/25. Procedure: Procedures Assessment/Plan: Diagnosis Plan 1. Acute midline low back pain without sciatica XR Lumbar Spine XR Thoracic Spine Results and Data Reviewed: I personally reviewed the radiology results. Interventions: Check imaging. Assessment and Plan: 60-year-old male patient presents with fairly severe mid back pain beginning approximately 30 minutes [employer] when he attempted to swing a file cabinet up onto his truck Pain dropped him to his knees but he was able to stand up on his own No loss of bowel or bladder No leg numbness, tingling or weakness Patient did have presyncopal episode after x-rays obtained-did not feel safe discharging patient onher own and was called to assist patient X-rays do note renal calculi on lumbar [id number] states that is not now Provider Notes thoracic compression fractures-no official reading prior to patient discharge Provide prescription tramadol-patient denies any history of substance abuse Patient is aware to stay hydrated and advise use of [id number] stool softener- Please see AVS for further information-patient is aware to follow-up with [facility] documented in this encounter Plan of Treatment Not on file documented as of this encounter Procedures Procedure Name Priority Date/Time Associated Diagnosis Comments XR THORACIC SPINE 3 VIEW Urgent/patient waiting 08/05/2025 10:19 AM EDT Acute midline low back pain without sciatica XR LUMBOSACRAL SPINE 2-3 VIEWS Urgent/patient waiting 08/05/2025 10:01 AM EDT Acute midline low back pain without sciatica documented in this encounter Results * XR THORACIC SPINE 3 VIEW (08/05/2025 10:19 AM EDT) Anatomical Region Laterality Modality T-spine Computed Radiogr aphy 08/05/2025 11:0 7 AM EDT Impressions 08/05/2025 11:10 AM EDT Age-indeterminate compression deformities of T6 and T12 but new from 04/28/2024. Narrative 08/05/2025 11:10 AM EDT XR THORACIC SPINE 3 VIEW Referring clinician's provided indication for this examination in [facility]: Pain; abnormal T12 on lumbar xr COMPARISON: XR CHEST PA AND LATERAL 2 VIEWS 2023- FINDINGS: Similar compression deformities of the upper thoracic spine. Age-indeterminate compression deformity of T6 and T12. Multilevel degenerative changes are seen. Procedure Note Yolie Hood MD - 08/05/2025 XR THORACIC SPINE 3 VIEW Referring clinician's provided indication for this examination in Epic:Pain; abnormal T12 on lumbar xr COMPARISON: XR CHEST PA AND LATERAL 2 VIEWS FINDINGS: Similar compression deformities of the upper thoracic spine.Age-indeterminate compression deformity of T6 and T12. Multileveldegenerative changes are seen. IMPRESSION: Age-indeterminate compression deformities of T6 and T12 but new from04/28/2024. Evangelina Pineda PARTY DIRECTOR IM XR SPINE Final Resul t * XR LUMBOSACRAL SPINE 2-3 VIEWS (08/05/2025 10:01 AM EDT) Anatomical Region Laterality Modality L-spine Computed Radiogr aphy 08/05/2025 10:4 5 AM EDT Addenda Addendum by Yolie Hood MD on 08/05/2025 11:11 AM EDT ADDENDUM: Addendum: Upon second review, there is is a compression deformity of T12, age-indeterminate but new from 04/28/2024. End of addendum. Impressions 08/05/2025 10:46 AM EDT No displaced fracture. Likely 5 mm left lower pole renal stone. Narrative 08/05/2025 10:46 AM EDT XR LUMBOSACRAL SPINE 2-3 VIEWS Referring clinician's provided indication for this examination in [facility]: Pain; 30 min prior- heard pop, unable stand up straight COMPARISON: None FINDINGS: Normal alignment. Normal vertebral body heights. Intervertebral disc space narrowing and osteophytes are seen throughout the lumbar spine.. Intact sacroiliac joints. Right hip arthroplasty is partially seen. 5 mm calcified density projecting over the left renal fossa over the lower pole. Procedure Note Yolie Hood MD - 08/05/2025 XR LUMBOSACRAL SPINE 2-3 VIEWS Referring clinician's provided indication for this examination in [facility]:Pain; 30 min prior- heard pop, unable stand up straight COMPARISON: None FINDINGS: Normal alignment. Normal vertebral body heights. Intervertebral disc spacenarrowing and osteophytes are seen throughout the lumbar spine.. Intactsacroiliac joints. Right hip arthroplasty is partially seen. 5 mmcalcified density projecting over the left renal fossa over the lowerpole. IMPRESSION: No displaced fracture. Likely 5 mm left lower pole renal stone. Evangelina Pineda PARTY DIRECTOR IMG XR SPINE Edited Resu lt - Final documented in this encounter Visit Diagnoses Diagnosis Acute midline low back pain without sciatica- Primary Nontraumatic compression fracture of T8 vertebra, initial encounter documented in this encounter Care Teams Event Management Consultant Relationship Specialty Start Date End Date Ander Rojas DO PCP - General Internal Medicine 11/23/17 documented as of this encounter Additional Source Comments The information contained in this document represents components of the legal health record. It is not the complete legal health record.[facility]
--- OUTSIDE RECORDS SUMMARY | 2025-08-05 09:50 | XMS_ITS | Encounter Summary ---
Author Organization [facility] Address [address] [place] [address] Phone Care Team Providers Care 7Th Grade Teacher Name Role Phone Ander Rojas Primary Care Provider [phone] Encounter Details Date Type Department Care Team (Late st Contact Info) Description 08/05/2025 9:50 AM EDT Hospital Encounter [facility] [address] [place] [address] Evangelina Pineda CNP [address] [place] [address] juan Arrived Social History Tobacco Use Types Packs/Day Years Used Date Smoking Tobacco: Never Smokeless Tobacco: Never Alcohol Use Standard Drinks/Week Comments No 0 [...] on file documented as of this encounter Plan of Treatment Not on file documented as of this encounter Procedures Procedure Name Priority Date/Time Associated Diagnosis Comments XR LUMBOSACRAL SPINE 2-3 VIEWS Urgent/patient waiting 08/05/2025 10:01 AM EDT Acute midline low back pain without sciatica documented in this encounter Results * XR LUMBOSACRAL SPINE 2-3 VIEWS (08/05/2025 [...] clinician's provided indication for this examination in Epic: Pain; 30 min prior- heard pop, unable [...] clinician's provided indication for this examination in [facility]:Pain; 30 min prior- heard pop, unable [...] left lower pole renal stone. Evangelina Pineda POLITICAL GEOGRAPHER IMG XR SPINE Edited Resu lt - Final documented in this encounter Visit Diagnoses Not on filedocumented in this encounter Care Teams 7Th Grade Teacher Relationship Specialty Start Date End Date Ander Rojas DO PCP - General Internal Medicine 11/23/17 documented as of this encounter Additional Source Comments The information contained in this document represents components of the legal health record. It is not the complete legal health record.[facility]
--- OUTSIDE RECORDS SUMMARY | 2025-08-05 10:09 | XMS_ITS | Encounter Summary ---
Author Organization [facility] Address [address] [place] [address] Phone Care Team Providers Care Women Specialist Name Role Phone Ander Rojas Primary Care Provider [phone] Encounter Details Date Type Department Care Team (Late st Contact Info) Description 08/05/2025 10:09 AM EDT Hospital Encounter [facility] [address] [place] [address] Evangelina Pineda CNP [address] [place] [address] juan [email or web address] Arrived Social History Tobacco Use Types Packs/Day [...] clinician's provided indication for this examination in [facility]: Pain; abnormal T12 on lumbar xr COMPARISON: XR CHEST PA AND LATERAL 2 VIEWS FINDINGS: Similar compression deformities of the upper thoracic spine. Age-indeterminate compression deformity of T6 and T12. Multilevel degenerative changes are seen. Procedure Note Yolie Hood MD - 08/05/2025 XR THORACIC SPINE 3 VIEW Referring clinician's provided indication for this examination in [facility]:Pain; abnormal T12 on lumbar xr COMPARISON: XR CHEST PA AND LATERAL 2 VIEWS FINDINGS: Similar compression deformities of the upper thoracic spine.Age-indeterminate compression deformity of T6 and T12. Multileveldegenerative changes are seen. IMPRESSION: Age-indeterminate compression deformities of T6 and T12 but new from04/28/2024. Evangelina Pineda POLICE AIDE IMG XR SPINE Final Resul t documented in this encounter Visit Diagnoses Not on filedocumented in this encounter Care Teams Women Specialist Relationship Specialty Start Date End Date Ander Rojas DO [email or web address] PCP - General Internal Medicine 11/23/17 documented as of this encounter Additional Source Comments The information contained in this document represents components of the legal health record. It is not the complete legal health record.[facility]
--- OUTSIDE RECORDS SUMMARY | 2025-08-07 15:32 | XMS_ITS | Encounter Summary ---
Author Organization [facility] Address [address] [facility] [address] [place] [address] Phone Care Team Providers Care Staff Mechanical Engineer Name Role Phone Ander Rojas Primary Care Provider [phone] Reason for Referral * MRI/CAT Scan - Closed Specialty Diagnoses / Procedures Referred By Rosie marcano Referred To Contact Radiology Diagnoses Kidney stone Procedures CT Abdomen/Pelvis Marisela Hopper PA-C Phone: tel: fax: [email or web address] Referral ID Status Reason Start Date Expiration Date Visits Re quested Visits Authorized [id number] Closed 06/24/2018 06/24/2019 1 1 Encounter Details Date Type Department Care Team (Late st Contact Info) Description 06/24/2018 Ancillary Orders Virtual Department [address] [place] [address] Marisela Hopper PA-C [address] [place] [address] Kidney stone Social History Tobacco Use Types Packs/Day Years Used Date Smoking Tobacco: Never Smokeless Tobacco: Never Alcohol Use Standard Drinks/Week Comments Yes 0 (1 standard drink = 0.6 oz pur e alcohol) Sex and Gender Information Value Date Recorded Sex Assigned at Not on file Legal Sex Male 9:40 PM EDT Gender Identity Not on file Sexual Orientation Not on file documented as of this encounter Plan of Treatment Not on file documented as of this encounter Results * CT ABDOMEN/PELVIS WITHOUT CONTRAST (06/26/2018 1:19 PM EDT) Anatomical Region Laterality Modality Abdomen, Pelvis Computed Tomogra phy 06/26/2018 2:28 PM EDT Impressions 06/26/2018 2:45 PM EDT 1. No evidence of a right-sided intrarenal/ureteral or intrabowel radiodensity. 2. Incidental non-obstructing left lower pole 5 mm renal stone. 3. Otherwise unremarkable non-enhanced CT abdomen and pelvis. TOTAL CTDIvol: 8.6 mGy POS - [id number] Narrative 06/26/2018 2:45 PM EDT Automated exposure control. Unenhanced exam from adrenals through pelvic floor. Multiplanar reformations. Compare to typed report of lumbar spine films from 06/21/2018 by teleradiology specialists describing a 1.5 cm diameter calcification to the right of L1-2. FINDINGS: 5 mm non-obstructing stone lower pole left kidney. No other intrarenal, ureteral or bladder calculi on either side. Neither collecting system is dilated. No obvious renal masses or signs of pyelonephritis on this non-enhanced study. No bladder wall thickening or filling defects. No prostate enlargement. The lower liver and spleen, the gallbladder, biliary tree, pancreas and adrenals all unremarkable for non-enhanced exam. No opaque densities within the bowel lumen to the right of L1 or elsewhere. Very minimal sigmoid diverticulosis. No other bowel pathology is apparent allowing for lack of oral contrast. No adenopathy or ascites. Visualized lung bases and pleural spaces clear. No bony pathology. Procedure Note Kelvin Anderson MD - 06/26/2018 Automated exposure control. Unenhanced exam from adrenals through pelvic floor. Multiplanarreformations. Compare to typed report of lumbar spine films from 06/21/2018 byteleradiology specialists describing a 1.5 cm diameter calcification tothe right of L1-2. FINDINGS: 5 mm non-obstructing stone lower pole left kidney. No other intrarenal, ureteral or bladder calculi on either side. Neither collecting system is dilated. No obvious renal masses or signs of pyelonephritis on this non-enhancedstudy. No bladder wall thickening or filling defects. No prostate enlargement. The lower liver and spleen, the gallbladder, biliary tree, pancreas andadrenals all unremarkable for non-enhanced exam. No opaque densities within the bowel lumen to the right of L1 orelsewhere. Very minimal sigmoid diverticulosis. No other bowel pathologyis apparent allowing for lack of oral contrast. No adenopathy or ascites. Visualized lung bases and pleural spaces clear. No bony pathology. IMPRESSION: 1. No evidence of a right-sided intrarenal/ureteral or intrabowelradiodensity. 2. Incidental non-obstructing left lower pole 5 mm renal stone. 3. Otherwise unremarkable non-enhanced CT abdomen and pelvis. TOTAL CTDIvol: 8.6 mGy POS - [id number] January Ward BAKER IMG CT ABD/PELVIS Final Resu lt documented in this encounter Visit Diagnoses Diagnosis Kidney stone Calculus of kidney Kidney stone Calculus of kidney documented in this encounter Additional Health Concerns Infection Onset Date Last Indicated Resolved Time CoV-Risk 06/13/2020 06/13/2020 06/27/2020 1:24 AM EDT CoV-Exposed Comment:Recent close contact documented in the COVID-19 PCR/PRO order 10/10/2021 10/13/2021 10/25/2021 1:[address] CoV-Risk 02/21/2022 02/21/2022 03/04/2022 1:25 AM EDT CoV-Exposed Comment:Recent close contact documented in the COVID-19 PCR/PRO order 02/21/2022 02/21/2022 03/04/2022 1:25 AM E DT documented as of this encounter Care Teams Staff Mechanical Engineer Relationship Specialty Start Date End Date Ander Rojas DO PCP - General Internal Medicine 11/23/17 documented as of this encounter Additional Source Comments The information contained in this document represents components of the legal health record. It is not the complete legal health record.[facility]
--- OUTSIDE RECORDS SUMMARY | 2025-08-07 15:32 | XMS_ITS | Clinical Summary ---
Author Organization [facility] Address [address] [place] [address] Care Team Providers Care Manager Primary Name Role Phone Ander Rojas DO Primary Care Provider [phone] Social History Tobacco Use Types Packs/Day Years [...] 2016 Zoster Vaccines (1 of 2) 2016 Depression Screening 10/08/2024 COVID-19 Vaccine (1 - 2023-2 5 season) 2025 Influenza Vaccine (#1) 2025 RSV Immunization Adult Patie nts (1 - 1-dose 75+ series) 2041 HIB Vaccines Aged Out No longer eligi [...] age to complete this topic Meningococcal B Vaccine Aged Out No l onger eligible based on patient's age to complete this topic RSV Immunization Patients Un fazal 20 months Aged Out No longer eligible b ased on patient's age to complete this topic Varicella Vaccines Aged Out No longer eligible based on patient's age to complete this topic Care Teams Manager Primary Relationship Specialty Start Date End Date Ander Rojas DO [address] [facility] [place], [place] PCP - General Internal Medicine 04/28/20
--- OUTSIDE RECORDS SUMMARY | 2025-08-07 15:32 | XMS_ITS | Encounter Summary ---
Author Organization [facility] Address [address] [facility] [address] [place] [address] Phone Care Team Providers Care Medical Record Administrator Name Role Phone Ander Rojas DO Primary Care Provider [phone] Encounter Details Date Type Department Care Team (Late st Contact Info) Description 06/21/2018 Ancillary Orders Virtual Department [address] [place] [address] Marisela Hopper, SAMUEL [address] [place] [address] [email or web address] Acute low back pain, unspecified back pain laterality, with sciatica presence unspecified; Pain in joint of right hip Social History Tobacco Use Types Packs/Day Years [...] on file documented as of this encounter Visit Diagnoses Diagnosis Acute low back pain, unspecified back pain laterality, with sciatica presence unspecified Pain in joint of right hip documented in this encounter Additional Health Concerns [...] documented as of this encounter Care Teams Medical Record Administrator Relationship Specialty Start Date End Date Ander Rojas DO [email or web address] PCP - General Internal Medicine 11/23/17 documented as of this encounter Additional Source Comments The information contained in this document represents components of the legal health record. It is not the complete legal health record.[facility]
--- OUTSIDE RECORDS SUMMARY | 2025-08-07 15:32 | XMS_ITS | Encounter Summary ---
Author Organization [facility] Address [address] [facility] [address] [place] [address] Phone Care Team Providers Care Claims Manager Name Role Phone Ander Rojas DO Primary Care Provider [phone] Encounter Details Date Type Department Care Team (Late st Contact Info) Description 04/28/2019 Procedure Pass [place] Admitting Dept - Virtual Department [address] [place] [address] Social History Tobacco Use Types Packs/Day Years [...] documented as of this encounter Visit Diagnoses Not on filedocumented in this encounter Additional Health Concerns Infection [...] documented as of this encounter Care Teams Claims Manager Relationship Specialty Start Date End Date Ander Rojas [email or web address] PCP - General Internal Medicine 11/23/17 documented as of this encounter Additional Source Comments The information contained in this document represents components of the legal health record. It is not the complete legal health record.[facility]
--- OUTSIDE RECORDS SUMMARY | 2025-08-07 15:32 | XMS_ITS | Encounter Summary ---
Author Organization [facility] Address [address] [address] Phone Care Team Providers Care Spotlight Operator Name Role Phone Ander Rojas DO Primary Care Provider [phone] Reason for Referral * Physical Therapy (Routine) - Closed Specialty Diagnoses / Procedures Referred By Rosie marcano Referred To Contact Physical Therapy Diagnoses Encounter for rehabilitation Marisela Hopper PA-C Phone: tel: fax: [email or web address] [facility] [address] [place] [address] Phone: tel: Referral ID Status Reason Start Date Expiration Date Visits Re quested Visits Authorized [id number] Closed 06/24/2018 04/06/2019 30 30 Encounter Details Date Type Department Care Team (Late st Contact Info) Description 06/04/[address] [facility] [address] [place] [address] Ander Rojas DO [address] [facility] [place] [address] Encounter for rehabilitation (Primary Dx) Social History Tobacco Use Types Packs/Day Years [...] as of this encounter Plan of Treatment Scheduled Referrals Name Type Priority Associated Diagnoses Orde r Schedule Ambulatory referral to [facility] Physical Therapy Outpatient Referral Routine Encounter for rehabilitation Ordered: 06/04/2018 documented as of this encounter Visit Diagnoses Diagnosis Encounter for rehabilitation- Primary documented in this encounter Additional Health Concerns [...] documented as of this encounter Care Teams Spotlight Operator Relationship Specialty Start Date End Date Ander Rojas DO [email or web address] PCP - General Internal Medicine 11/23/17 documented as of this encounter Additional Source Comments The information contained in this document represents components of the legal health record. It is not the complete legal health record.[facility]
--- OUTSIDE RECORDS SUMMARY | 2025-08-07 15:32 | XMS_ITS | Encounter Summary ---
Author Organization [facility] Address [address] [place] [address] Phone Care Team Providers Care Voice Coach Name Role Phone Ander Rojas DO Primary Care Provider [phone] Encounter Details Date Type Department Care Team (Latest Contact Info) Description 10/13/2021 Transcribe Orders Virtual Department [address] [place] [address] Ariana Khan PA [address] [facility] [place] [address] [place] [address] Exposure to confirmed case of COVID-19 (Primary Dx) Social History Tobacco Use Types [...] as of this encounter Plan of Treatment Pending Results Name Type Priority Associated Diagnoses Date /Time COVID-19 PCR Order Lab Routine Exposure to confirmed case of COVID-19 10/13/2021 4:50 PM EST documented as of this encounter Visit Diagnoses Diagnosis Exposure to confirmed case of COVID-19- Primary documented in this encounter Additional Health Concerns Infection Onset Date Last Indicated Resolved Time CoV-Exposed Comment:Recent close contact documented in the COVID-19 PCR/PRO order 10/10/2021 10/13/2021 10/25/2021 1:[address] CoV-Risk 02/21/2022 02/21/2022 03/04/2022 1:25 AM EDT CoV-Exposed Comment:Recent close contact documented in the COVID-19 PCR/PRO order 02/21/2022 02/21/2022 03/04/2022 1:25 AM E DT documented as of this encounter Care Teams Voice Coach Relationship Specialty Start Date End Date Ander Rojas DO [email or web address] PCP - General Internal Medicine 11/23/17 documented as of this encounter Additional Source Comments The information contained in this document represents components of the legal health record. It is not the complete legal health record.[facility]
--- OUTSIDE RECORDS SUMMARY | 2025-08-07 15:32 | XMS_ITS | Encounter Summary ---
Author Organization [facility] Address [address] [facility] [address] [place] [address] Phone Care Team Providers Care Mortgage Loan Computation Clerk Name Role Phone Ander Rojas DO Primary Care Provider [phone] Encounter Details Date Type Department Care Team (Late st Contact Info) Description 06/24/2018 Procedure Pass [facility], Ct Scan - [facility] [address] [place] [address] Social History Tobacco Use Types Packs/Day Years [...] documented as of this encounter Care Teams Mortgage Loan Computation Clerk Relationship Specialty Start Date End Date Ander Rojas DO [email or web address] PCP - General Internal Medicine 11/23/17 documented as of this encounter Additional Source Comments The information contained in this document represents components of the legal health record. It is not the complete legal health record.[facility]
--- OUTSIDE RECORDS SUMMARY | 2025-08-07 15:32 | XMS_ITS | Clinical Summary ---
Author Organization [facility] Address [address] [facility] [address] [place] [address] Phone Care Team Providers Care Manager Electrical Name Role Phone Ander Rojas DO Primary Care Provider [phone] Allergies Active Allergy Reactions Criticality Noted Date Comments No Known Allergies Medications albuterol 90 mcg/actuation inhaler Inhale 2 puffs into the lungs every 6 (six) hours as needed for wheezing. 6.7 g 2 Active guaiFENesin-cod eine (ROBITUSSIN AC) 100-10 mg/5 mL liquid Take 5 mL (10 mg of codeine total) by mouth 3 (three) times a day as needed for cough. 120 mL 2 Active Additional Information Patient not taking.Reported on 08/05/2025 terbinafine HCL (LAMISIL) 250 mg tablet Take 1 tablet (250 mg total) by mouth daily. 14 tablet 3 Active hydrOXYzine HCL (ATARAX) 10 MG tablet TAKE 1 TO 2 TABLETS BY MOUTH DAILY EVERY 12 HOURS NEEDED FOR ITCHING Active omeprazole (PRILOSEC) 40 MG capsule TAKE ONE CAPSULE EVERYDAY BY MOUTH FOR 30 DAYS Active traMADoL (ULTRAM) 50 mg tablet Take 1 tablet (50 mg total) by mouth every 6 (six) hours as needed for pain (specific location in comments). 10 tablet 5 Active Active Problems Problem Noted Date Diagnosed Date Gastroesophageal reflux disease 05/09/2024 Acne rosacea, papular type 10/03/2022 History of total hip replacement, right 04/28/20 19 Avascular necrosis of femoral head 04/15/2019 Mixed hyperlipidemia 05/28/2018 Abscess of perineum 12/05/2017 Assessment & Plan (12/20/2017 10:56 AM EDT): We discussed I&D, but he opted against it as he feels it is spontaneously draining. I do not feel fluctuance as well. We will see him back on Sunday to reassess. Bactrim is been prescribed. He will try to offload pressure as much as possible and keep the area clean. We discussed eventual excision of the area as there is likely a cyst in the area of healing resulting in recurrent infections. Assessment & Plan (12/05/2017 10:41 AM EST): Reviewed procedure for I&D, consent signed. Prepped and anesthetized with 1% lidocaine with epinephrine. Incision into abscess cavity and evacuation of serosanguinous drainage, culture obtained and sent to the lab. Cavity cleansed with hydrogen peroxide and loculations broken with cotton-tipped applicator, packed with 1/2 inch packing tape and covered with DSD. To remove packing in 24 hours, wash site well with soap and water and keep covered while draining. To call with any questions or problems. Resolved Problems Problem Noted Date Diagnosed Date Resolved Date Osteonecrosis of right hip 11/12/2018 0 06/10/2019 Encounters Date Type Department Care Team Description 08/05/2025 10:09 AM EDT Hospital Encounter [facility] [address] [place] [address] Evangelina Pineda CNP Arrived 08/05/2025 9:50 AM EDT Hospital Encounter [facility] [address] [place] [address] Evangelina Pineda CNP Arrived 08/05/2025 9:30 AM EDT Office Visit [facility] at [address] [address] Evangelina Pineda CNP Acute midline low back pain without sciatica (Primary Dx); Nontraumatic compression fracture of T8 vertebra, initial encounter from Last 3 Months Immunizations Immunization Administration Dates Next Due COVID-19 (Pre-07/30) Moderna Vaccine, mRNA, PF 09/08/2021,01/31/2021,12/27/2020 Influenza Quadrivalent Preservative Free IM 07/08,07/18/2018 Influenza Quadrivalent w/ Preservative IM 2018,07/18/2018 Td (adult) 5 Lf Tetanus Toxo id, PF, Adsorbed 08/23/2012 Tdap 10/08/2011 Zoster recombinant 06/20/2022,10/25/2021 Family History Medical History Relation Comments Clotting disorder Father Relation Status Comments Father Mother Alive Social History Tobacco Use Types Packs/Day Years [...] EDT Inhaled Oxygen Concentration - - Weight 95.3 kg (210 lb) 04/28/2024 12:57 PM EDT Height 175.3 cm (5' 9 ) 04/28/2024 12:57 PM EDT Body Mass Index 31.01 04/28/2024 12:57 PM EDT Plan of Treatment Health Maintenance Due Date Last Done Comments LIPID PANEL 1966 DEPRESSION SCREENING 1978 COLOGUARD 2011 COLONOSCOPY 2011 COLORECTAL CANCER SCREENING 2011 FIT TEST 2011 FOBT 2011 SIGMOIDOSCOPY 2011 VIRTUAL COLONOSCOPY 2011 PNEUMOCOCCAL VACCINES (50+ years) (1 of 1 - PCV) 2016 Adult Td,Tdap Booster 08/23/2022 08/23/2012, 012 INFLUENZA VACCINE (#1) 2025 9, 07/19/2019, 07/18/2018, Additional history exists COVID-19 VACCINE ( season) 2025 09/08/2021, 01/31/2021, 12/27/2020 SCREENING FOR DIABETES 04/28/2027 04/28/2024 RSV VACCINE (1 - 1-dose 75+ series) 2041 HEPATITIS C SCREENING Completed 09/21/2020 HIV ONE-TIME SCREENING (18-65 YEARS) Completed 09/21/2020 ZOSTER VACCINES Completed 06/20/2022, 10/25/2021 SMOKING STATUS SCREENING (Once After 26 Yrs) Completed 08/05/2025 HEPATITIS A VACCINES Aged Out No long er eligible based on patient's age to complete this topic HIB VACCINES Aged Out No longer eligi ble based on patient's age to complete this topic MENINGOCOCCAL VACCINES (ACWY) Aged Out No longer eligible based on patient's age to complete this topic MENINGOCOCCAL VACCINES (B) Aged Out N o longer eligible based on patient's age to complete this topic Medical Devices Implanted Type Area Flight Instructor Device Identifier Shelf Expiration Date Model / Serial / Lot Hip 36mm 6.0 G7 [place] Modular Type 1 Tapered Plus - [id number] Implanted:Qty: 1 on 04/28/2019 by Rell Richards MD at [facility] STANDARD Right: Hip [employer] 02/19/2029 [id number] / / [id number] Acetabular Shell 54mm Size F G7 Porous Plasma [place] [employer] Hole - [id number] Implanted:Qty: 1 on 04/28/2019 by Rell Richrads MD at [facility] Right: Hip [employer] 12/29/2028 [id number] / / [id number] Hip Liner Sz F 36mm Plus 5mm Neutral G7 Arcomxl - [id number] Implanted:Qty: 1 on 04/28/2019 by Rell Richards MD at [facility] Right: Hip CONNIE / DIV OF [employer] 02/26/2024 [id number] / / [id number] Hip Stem 80k339se Porous Laterized Reduced Echo Titanium - [id number] Implanted:Qty: 1 on 04/28/2019 by Rell Richards MD at [facility] Right: Hip [employer] 06/23/2025 [id number] / / [id number] Procedures Procedure Name Priority Date/Time Associated Diagnosis Comments XR THORACIC SPINE 3 VIEW Urgent/patient waiting 08/05/2025 10:19 AM EDT Acute midline low back pain without sciatica XR LUMBOSACRAL SPINE 2-3 VIEWS Urgent/patient waiting 08/05/2025 10:01 AM EDT Acute midline low back pain without sciatica HEPATITIS C ANTIBODY, QUALITATIVE Routine 09/21/2020 7:45 AM EST Screening examination for venereal disease from Last 3 Months or Most Recently Relevant to Health Maintenance Results * XR THORACIC SPINE 3 VIEW (08/05/2025 10:19 AM EDT) Anatomical Region Laterality Modality T-spine Computed Radiogr aphy 08/05/2025 11:0 7 AM EDT Impressions 08/05/2025 11:10 AM EDT Age-indeterminate compression deformities of T6 and T12 but new from 04/28/2024. Narrative 08/05/2025 11:10 AM EDT XR THORACIC SPINE 3 VIEW Referring clinician's provided indication for this examination in Epic: Pain; abnormal T12 on lumbar xr COMPARISON: [...] of T6 and T12 but new from04/28/2024. us Evangelina Pineda RETREADER IMG XR SPINE Final Resul t * XR [...] provided indication for this examination in [facility]: Pain; 30 min prior- heard pop, [...] provided indication for this examination in [facility]:Pain; 30 min prior- heard pop, unable stand up straight COMPARISON: None FINDINGS: Normal alignment. Normal vertebral body heights. Intervertebral disc spacenarrowing and osteophytes are seen throughout the lumbar spine.. Intactsacroiliac joints. Right hip arthroplasty is partially seen. 5 mmcalcified density projecting over the left renal fossa over the lowerpole. IMPRESSION: No displaced fracture. Likely 5 mm left lower pole renal stone. us Evangelina Pineda RETREADER IMG XR SPINE Edited Resu lt - Final * Hepatitis C antibody, qualitative (09/21/2020 7:45 AM EST) HCV NON-REACTIV E NON-REACTI VE [facility] Blood 09/21/2020 7:45 AM EST 09/21/2020 7:49 AM EST us Ariana BELCHER LAB BLOOD ORDERABLES Final Result [facility] [address] [place] [address] from Last 3 Months or Most Recently Relevant to Health [place] [phone] [facility] PPO CIGNA PPO CIGNA PPO Member Subscriber Plan / Payer ( fective 2017-Present) Name:Lindsay Acevedo Relation to Subscriber:Self Name:LINDSAY ACEVEDO Payer ID:[id number] ([facility]) Type:PPO Address: [place] [id number] [employer] [phone] [place] [phone] CIGNA PPO CIGARLEN PPO VITO PPO Advance Directives For more information, please contact: [phone] (9AM - 5PM [facility], Sunday-Sunday) Documents on File Type Date Recorded Patient Tacking Stitch Remover Expl anation Healthcare Proxy 05/01/2019 11:20 AM * Full Code (Presumed) (Latest Code Status on File) Date Activated Date Inactivated Comments 04/28/2019 1:02 PM 04/30/2019 7:56 PM * Full Code (Presumed) Date Activated Date Inactivated Comments 04/28/2019 6:25 AM 04/28/2019 1:02 PM Care Teams Manager Electrical Relationship Specialty Start Date End Date Ander Rojas DO PCP - General Internal Medicine 11/23/17 Additional Source Comments The information contained in this document represents components of the legal health record. It is not the complete legal health record.[facility]
--- OUTSIDE RECORDS SUMMARY | 2025-08-07 15:32 | XMS_ITS | Clinical Summary ---
Author Organization [facility] Address [address] [place] [address] Care Team Providers Care Bioinformatics Team Member Name Role Phone Pcp, No Primary Care Provider Unavailabl e Allergies No known active allergies Social History Tobacco Use Types Packs/Day Years Used Date Smoking Tobacco: Never Assessed Sex and Gender Information Value Date Recorded Sex Assigned at Not on file Legal Sex Male 6:27 PM EST Gender Identity Not on file Sexual Orientation Not on file Last Filed Vital Signs Vital Sign Reading Time Taken Comments Blood Pressure - - Pulse 65 06/21/2021 10:24 AM EDT Temperature 36.6 C (97.8 F) 06/21/2021 10:24 AM EDT Respiratory Rate - - Oxygen Saturation 98% [...] Vaccine (1 of 2) 2016 Influenza Vaccine 05/08/2025 07/13/2020 COVID-19 Vaccine (2024- season) 2025 09/08/2021, 01/31/2021, 12/27/2020 RSV Vaccine 50 years and old er and Patients (1 - 1-dose 75+ series) 2041 Insurance [facility] HMO Care Teams Bioinformatics Team Member Relationship Specialty Start Date End Date Pcp, No PCP - General General Medicine 05/26/21
--- OUTSIDE RECORDS SUMMARY | 2025-08-07 15:32 | XMS_ITS | Clinical Summary ---
Author Organization [facility] Address [address] [place] [address] Care Team Providers Care Endo Tech Name Role Phone Ander Rojas DO Primary Care Provider [phone] Social History Tobacco Use Types Packs/Day Years [...] (1 of 2) 2016 Influenza Vaccine (#1) 2025 Pneumococcal Vaccine Aged Out No long er eligible based on patient's age to complete this topic RSV Ped < 20 months Aged Out No longe r eligible based on patient's age to complete this topic Care Teams Endo Tech Relationship Specialty Start Date End Date Ander Rojas DO [address] [place] [address] PCP - General Internal Medicine 04/28/20
--- OUTSIDE RECORDS SUMMARY | 2025-08-07 15:32 | XMS_ITS | Encounter Summary ---
Author Organization [facility] Address [address] [facility] [address] [place] [address] Phone Care Team Providers Care Merchandiser Name Role Phone Ander Rojas Primary Care Provider [phone] Encounter Details Date Type Department Care Team ([facility] st Contact Info) Description 08/07/2024 Procedure Pass [facility] Admitting Dept Virtual Department [address] [place] [address] Social History Tobacco Use Types Packs/Day Years [...] on filedocumented in this encounter Care Teams Merchandiser Relationship Specialty Start Date End Date Ander Rojas DO [email or web address] PCP - General Internal Medicine 11/23/17 documented as of this encounter Additional Source Comments The information contained in this document represents components of the legal health record. It is not the complete legal health record.[facility]
[2025-08-07 18:04] LABS: MANUAL DIFF FLAG NO
[2025-08-07 18:19] LABS: Hematocrit 42.8 % (42.0-52.0); Hemoglobin 14.6 g/dl (14.0-18.0); Imm Gran Abs Auto 0.02 X10*3/uL (0.00-0.03); Imm Gran Pct Auto 0.5 % (0.0-0.4); Lymphocytes Absolute Auto 1.1 X10*3/uL (1.2-4.9); Mean Corpuscular HGB Conc 34.1 g/dl (31.0-36.0); Mean Corpuscular Hemoglobin 34.5 pg (27.0-33.0); Mean Corpuscular Volume 101.2 fL (80.0-98.0); NRBC Abs Auto 0.000 X10*3/uL (0.0-0.012); NRBC Pct Auto 0.0 /100WBC (0.0-0.2); Platelet Count 183 X10*3/uL (160-400); Red Blood Count 4.23 X10*6/uL (4.60-5.80); White Blood Count 4.4 X10*3/uL (4.8-10.8)
[2025-08-07 18:32] LABS: Alanine Aminotransferase 23 U/L (0-40); Albumin Level 3.8 g/dL (3.5-5.0); Alkaline Phosphatase 115 U/L (39-117); Anion Gap 12 (12-20); Aspartate Amino Transferase 21 U/L (5-37); Blood Urea Nitrogen 11 mg/dL (9-16); Calcium 9.1 mg/dL (8.4-10.2); Carbon Dioxide 28 mmol/L (22-29); Chloride 102 mmol/L (96-108); Estimated Glomerular Filt Rate > 60; Magnesium 2.2 mg/dL (1.6-2.6); Potassium 4.6 mmol/L (3.3-5.1); Sodium 137 mmol/L (135-145); Total Protein 6.9 g/dL (6.5-8.0)
[2025-08-07 18:37] LABS: Parathyroid Hormone Intact 79.2 pg/mL (8.7-77.1)
== END 2025-08-07 15:27 | disposition home or self-care (01) ==
LOC: HO.MANLDS 15:26
PROVIDERS: Visit Provider Physician Assistant
DX: M84.68XA Pathological fracture in other disease, other site, initial encounter for fracture (principal)
CPT/HCPCS: 36415; 80053; 83735; 83970; 84100; 84443; 85025